=== PATIENT | female | born 1990 | race Caucasian/White ===

== ENCOUNTER → 2018-06-17 16:27 | Outpatient (CLI) | payer OTHER, SELFPAY ==
[2018-06-17 17:08] LABS: Add Manual Diff / Slide Review NO; Basophils Percent Auto 0.7 % (0-2); Eosinophils Percent Auto 0.3 % (2-4); Hematocrit 36.7 % (36-46); Hemoglobin 12.6 g/dL (12.0-16.0); Lymphocytes Percent Auto 20.4 % (25-40); Mean Corpuscular HGB Conc 34.4 % (30-36); Mean Corpuscular Hemoglobin 30.6 PG (26-34); Mean Corpuscular Volume 88.9 fL (80-100); Monocytes Percent Auto 5.5 % (3-14); Neutrophils Absolute Auto 5700 /uL (3000-5900); Neutrophils Percent Auto 73.1 % (50-75); Platelet Count 212 X10^3/uL (150-400); Red Blood Cell Count 4.12 X10^6/uL (4.0-5.2); Red Cell Distribution Width 13.4 % (11.6-14.8); White Blood Cell Count 7.8 X10^3/uL (4.5-11.0)
[2018-06-17 18:03] LABS: Hepatitis B Surface Antigen NEGATIVE s/c (NEGATIVE)
[2018-06-17 18:23] LABS: HIV 1 and 2 Antibody NEGATIVE (NEGATIVE); Hep C Virus Ab w/Reflex Quant NEGATIVE s/c (NEGATIVE)
[2018-06-17 18:33] LABS: Bilirubin Urine UA NEGATIVE (NEGATIVE); Color Urine UA YELLOW; Glucose Urine UA NEGATIVE (Normal); Ketones Urine UA NEGATIVE (NEGATIVE); Leukocyte Esterase Urine UA 3+ (NEGATIVE); Nitrite Urine UA NEGATIVE (Negative); Occult Blood Urine UA TRACE-LYSED (Negative); Protein Urine UA NEGATIVE (Negative); Specific Gravity Urine UA <=1.005 (1.000-1.035); Urobilinogen Urine UA 0.2 E.U./dL (0.2)
[2018-06-17 18:39] LABS: Appearance Urine UA Slightly Cloudy
[2018-06-17 18:48] LABS: Bacteria Urine Moderate (10-30); RBC Urine 0-1/HPF (0-5/HPF); Squamous Epithelial Cell Urine 1-5 /HPF; Urine Comments CX ALREADY ORDERED; WBC Urine 1-5/HPF (0-5/HPF)
[2018-06-19 13:37] LABS: RPR Screen Nonreactive (Nonreactive)
[2018-06-19 14:13] LABS: HSV 2 IGG AB < 0.90 index (< 0.90); HSV1IGG > 58.00 index (< 0.90)
== END ==
PROVIDERS: Visit Provider Family Medicine
DX: Z34.82 Encounter for supervision of other normal pregnancy, second trimester (principal); Z3A.16 16 weeks gestation of pregnancy
CPT/HCPCS: 36415; 80055; 81003; 81015; 86695; 86696; 86703; 86787; 86803; 86850; 86900; 86901; 87077; 87086

== ENCOUNTER → 2018-08-12 15:31 | Outpatient (CLI) | payer OTHER, SELFPAY ==
--- NOTE | 2018-08-12 15:40 | DI.US.S_ITS ---
PROCEDURE: US OB >= 14 WEEKS FETUS INDICATIONS: ANATOMIC SURVEY OUTSIDE/PRIOR DATING DATA: Last menstrual period (LMP): 03/05/18. LMP-based estimated date of delivery (LEONIDAS): 12/10/18. First dating scan (date and location): 08/12/18. Estimated date of delivery (LEONIDAS) from first dating scan: 12/04/18. TECHNIQUE: Real-time scanning was performed of the fetus, with image documentation and biometric measurements. Endovaginal scanning: No COMPARISON: [facility], , OB >= 14 WEEKS FETUS, 06/24/2018, 16:44. FINDINGS: General: A single living intrauterine gestation is present. Presentation: Transverse. Placenta: Placental position is posterior, without previa. Amniotic fluid index: 16.3 cm. heart rate: 139 beats per minute. Maternal cervical canal: 4.1 cm. biometrics: Biparietal diameter: 24 weeks 5 days Head circumference: 24 weeks 2 days Abdominal circumference: 23 weeks 2 days Femur length: 22 weeks 5 days Estimated gestational age from initial scan: not applicable. Composite gestational age from present scan: 23 weeks 5 days Estimated weight and percentile: 574 g, 61st percentile Measurement variability for biometric dating: +/- 7 days from 14 weeks to 15 weeks 6 days gestation, +/- 10 days from 16 weeks to 21 weeks 6 days gestation, +/- 2 weeks from 22 weeks to 27 weeks 6 days gestation, +/- 3 weeks for 28 weeks gestation or later. weight reference: 4500 g or EFW >90/95% is considered macrosomia or large for gestational age. EFW <10% is small for gestational age. EFW 5% or less is considered intra-uterine growth restriction. Anatomic survey: Neuro: Ventricles are non-dilated at 4 mm. Cisterna magna is normal at 6 mm. Cerebellum is normal in size and morphology. Nuchal skin fold: Normal at 3 mm. Face: Nose and lips, facial profile are normal. Spine: No evidence for spina bifida. Heart: 4-chambered heart is present. The ventricular outflow tracts are not well assessed on this exam. Diaphragm: Diaphragm is intact. Stomach: Left-sided stomach is present. Kidneys: No hydronephrosis. Cord: 3-vessel cord. Bladder: Normal in size. Extremities: All 4 extremities identified. IMPRESSION: 1. Single living intrauterine present with composite gestational age of 23 weeks 5 days. 2. Ventricular outflow tracts are not well assessed on this exam; attention on followup exams recommended. Dictated by: Calderon Buitrago [facility] Interpreted: Jhon Sunshine MD on 08/12/2018 at 17:02 Approved by: Jhon Sunshine M.D. on 08/12/2018 at 21:44
== END ==
PROVIDERS: Visit Provider Family Medicine
DX: Z34.82 Encounter for supervision of other normal pregnancy, second trimester (principal); Z3A.23 23 weeks gestation of pregnancy
CPT/HCPCS: 76811

== ENCOUNTER → 2018-09-22 16:34 | Outpatient (CLI) | payer OTHER, SELFPAY ==
[2018-09-22 19:26] LABS: Hematocrit 31.5 % (36-46); Hemoglobin 10.6 g/dL (12.0-16.0)
[2018-09-22 19:41] LABS: GTT (PREG) 1 Hour PP 50gm Dose 89 mg/dL (76-139)
== END ==
PROVIDERS: PCP Family Medicine; Visit Provider Family Medicine
DX: Z34.83 Encounter for supervision of other normal pregnancy, third trimester (principal); Z3A.28 28 weeks gestation of pregnancy
CPT/HCPCS: 36415; 82950; 85014; 85018; 86850

== ENCOUNTER → 2018-11-17 16:52 | Outpatient (CLI) | payer OTHER, SELFPAY ==
[2018-11-18 12:38] LABS: Strep Grp B PCR NEG for Grp B Strep
== END ==
PROVIDERS: PCP Family Medicine; Visit Provider Family Medicine
DX: Z34.83 Encounter for supervision of other normal pregnancy, third trimester (principal); Z3A.36 36 weeks gestation of pregnancy
CPT/HCPCS: 87653

== ENCOUNTER 2018-12-14 15:19 | Outpatient (CLI) | payer OTHER, SELFPAY ==
--- NOTE | 2018-12-14 16:01 | PM.OBTRLD ---
Visit Information Visit Information Date of evaluation: 12/14/18 Reason for Evaluation: Yes non-stress test Comments/Additional reasons for admission: NST for post dates. Strip is reactive category 1. PFSH Social History Smoking Status: Never smoker Social History Smoking Status: Never smoker
== END 2018-12-14 16:10 | disposition home or self-care (01) ==
LOC: LABOR 15:47 → OB 12-17 10:55
PROVIDERS: PCP Family Medicine; Visit Provider Family Medicine
DX: O48.0 Post-term pregnancy (principal); Z3A.40 40 weeks gestation of pregnancy
CPT/HCPCS: 59025; G0378; G0379

== ENCOUNTER 2018-12-16 00:52 | Inpatient (IN) | payer OTHER, SELFPAY ==
[2018-12-16] MEDS: LACTATED RINGERS 1,000 ML 100 ML IV ×2 (01:25→03:55)
[2018-12-16 01:41] LABS: Add Manual Diff / Slide Review NO; Basophils Absolute Auto 0 /uL (0-100); Basophils Percent Auto 0.3 % (0-2); Eosinophils Absolute Auto 0 /uL (0-450); Eosinophils Percent Auto 0.5 % (2-4); Hemoglobin 10.6 g/dL (12.0-16.0); Lymphocytes Absolute Auto 2000 /uL (1100-4500); Mean Corpuscular Hemoglobin 27.4 PG (26-34); Mean Corpuscular Volume 80.4 fL (80-100); Monocytes Absolute Auto 700 /uL (0-900); Monocytes Percent Auto 7.1 % (3-14); Neutrophils Absolute Auto 6400 /uL (1500-7000); Neutrophils Percent Auto 70.1 % (50-75); Platelet Count 235 X10^3/uL (150-400); Red Blood Cell Count 3.86 X10^6/uL (4.0-5.2); White Blood Cell Count 9.2 X10^3/uL (4.5-11.0)
--- NOTE | 2018-12-16 02:41 | P.HP_ITS ---
History of Present Illness Date Patient Seen: 12/16/18 Time Patient Seen: 02:34 Chief complaint: evaluation of labor Narrative: 28-year-old G2 para 1 at 40 and 6 7 weeks consistent with LMP and early ultrasound presents to the labor and delivery floor with rupture of membranes. She says approximately at 12:00 p.m. this evening. Her water broke. Patient has been having intermittent contractions for the last day or 2. Patient states her contractions were not any more severe than usual. She said baby had clear fluid. They presented to the labor and delivery floor for evaluation. Last 24 hours patient states she has been feeling well. No headache blurry vision right upper quadrant pain. She has some mild swelling. And intermittent contractions. Patient has had no fever. She has had good movement. On arrival to Labor and delivery for. Patient was grossly ruptured 6 cm and tamela. Patient's vital signs were stable. heart rate was on the low side of normal on a baseline of about 110 mildly flat. Baby was given a fluid bolus and requested an epidural. Which time strip became reactive. After the epidural vital signs were stable. The baby's cervical exam showed her to be at 9 cm. Patient was having some variable decelerations. But was getting comfortable. care initiated at 15 weeks with routine follow-up throughout. weight gain of approximately 35 lb. problems include history of delivery at 29 weeks and severe headaches intermittently during . labs be negative antibody screen negative initial hemoglobin hematocrit 36.7 and platelet count 212 ED are all nonreactive hepatitis-B surface antigen negative HIV negative rubella immune. HSV 1 positive HSV 2-Pap smear within normal limits varicella immune GBS negative. Patient medical history headache occasional stomach issues. Past surgical history none. Patient History Social History Smoking Status: Never smoker Family & Social History Tobacco & Substance use: Smoking Status Never smoker Meds Home Medications Medication Instructions Recorded Confirmed Type No Known Home Medications 12/16/18 12/16/18 History Allergies Allergy/AdvReac Type Severity Reaction Status Date / Time No Known Drug Allergies Allergy Verified 12/16/18 02:08 Exam Narrative Exam Narrative: . General: Alert no apparent distress. Affect is appropriate. Tamela it is uncomfortable. HEENT: Neck is supple without lymphadenopathy pupils equal round and reactive. Cardio: S1-S2 regular rate and rhythm. Respiratory: Lungs clear to auscultation. Abdomen: Gravid. Extremities: Normal deep tendon reflexes trace edema. [place]: Tamela regularly every 3-5 minutes with 60 minute contractions moderate and strength. heart tones: heart tones category 2. Objective Labs Result Diagrams: 12/16/18 01:25 Labs: Laboratory Results - last 24 hr 12/16/18 01:25 WBC 9.2 RBC 3.86 L Hgb 10.6 L Hct 31.0 L MCV 80.4 MCH 27.4 MCHC 34.0 RDW 14.0 Plt Count 235 Neut % (Auto) 70.1 Lymph % (Auto) 22.0 L [place] % (Auto) 7.1 Eos % (Auto) 0.5 L Baso % (Auto) 0.3 Neut # (Auto) 6400 Lymph # (Auto) 2000 [place] # (Auto) 700 Eos # (Auto) 0 Baso # (Auto) 0 Assessment & Plan Assessment & Plan narrative: 28-year-old G2 para 1 at 40 and 6 7 weeks grossly ruptured tamela. Patient now has an epidural vital signs are stable of the mother and afebrile. GBS status is negative. heart tones are currently category 2. Patient was receiving a fluid bolus with trying position changes and has oxygen on. Patient is not receiving Pitocin. The baby has had persistent low baseline heart rate since admission to the Center. With the heart rate of 105-110 with reactivity. heart tones are category 2. Will continue to observe closely. Her baby descended into the canal. With expectant management.
[2018-12-16] MEDS: OXYTOCIN 10 UNIT/ML VIAL IM (06:45)
--- NOTE | 2018-12-16 06:47 | PM.PROC.1 ---
Procedures Date/Time Date of procedure: 12/16/18 Time of procedure: 06:47 General Procedure description: Vaginal delivery Stage I of labor approximately 5 hours. During stage I of labor vital signs were stable in mother's she was afebrile she was tamela regularly without medication. She presented with spontaneous rupture of membranes. heart tone was category 2 because of persistent borderline bradycardia with heart rates between 110 and 105 with reactivity at times. Mother progressed through stage I of labor fairly rapidly with good descent of the baby's head during this time. She received epidural anesthesia for pain control. She had clear fluid and she was afebrile. Stage II of labor approximately 2 hours and 15 minutes. Good descent 3 stage II. Vacuum was used with no pop offs. Vacuum was applied at +2 position due to mother's discomfort heart tones that were in the 70s as well as maternal intolerant of proceeding with tiredness. Baby's head was expedited delivery with vacuum without difficulty B was delivered in the occiput anterior position. At the delivery of the head. Baby had a noticeable shoulder and body cord. Baby then delivered spontaneously. Cord was then cut and transected in baby was placed in the warmer with the nurse as mother did not want the baby on the abdomen until cleaned up. Baby was vigorous and had spontaneous cry. Stage III. Delivery of intact placenta. Repair of second-degree midline tear without difficulty in the usual fashion. Mom was given IM Pitocin. There was a 3 vessel cord. No cervical lacerations. Uterus was firm. Mom and baby were resting comfortably afterwards Apgars 8 and 8 weight 8 lb 13 oz.
[2018-12-16] MEDS: IBUPROFEN 600 MG TABLET PO ×2 (12:28→20:00)
[2018-12-16] MEDS: DERMOPLAST SPRAY 20% 60 ML 1 SPRAY TOP (20:01)
[2018-12-17] MEDS: IBUPROFEN 600 MG TABLET PO (05:03)
[2018-12-17 07:05] LABS: Hematocrit 24.5 % (36-46); Hemoglobin 8.2 g/dL (12.0-16.0)
--- NOTE | 2018-12-17 07:48 | PM.DS.1 ---
History of Present Illness Chief complaint: LABOR AND DELIVERY Narrative: 28-year-old G2 para 1 at 40 and 6 7 weeks consistent with LMP and early ultrasound presents to the labor and delivery floor with rupture of membranes. She says approximately at 12:00 p.m. this evening. Her water broke. Patient has been having intermittent contractions for the last day or 2. Patient states her contractions were not any more severe than usual. She said baby had clear fluid. They presented to the labor and delivery floor for evaluation. Last 24 hours patient states she has been feeling well. No headache blurry vision right upper quadrant pain. She has some mild swelling. And intermittent contractions. Patient has had no fever. She has had good movement. On arrival to Labor and delivery for. Patient was grossly ruptured 6 cm and tamela. Patient's vital signs were stable. heart rate was on the low side of normal on a baseline of about 110 mildly flat. Baby was given a fluid bolus and requested an epidural. Which time strip became reactive. After the epidural vital signs were stable. The baby's cervical exam showed her to be at 9 cm. Patient was having some variable decelerations. But was getting comfortable. care initiated at 15 weeks with routine follow-up throughout. weight gain of approximately 35 lb. problems include history of delivery at 29 weeks and severe headaches intermittently during . labs be negative antibody screen negative initial hemoglobin hematocrit 36.7 and platelet count 212 ED are all nonreactive hepatitis-B surface antigen negative HIV negative rubella immune. HSV 1 positive HSV 2-Pap smear within normal limits varicella immune GBS negative. Patient medical history headache occasional stomach issues. Past surgical history none. Discharge Providers Date of admission: 12/16/18 00:52 Discharge Date: 12/17/18 Primary care physician: Enrique Wolfe MD Consults: 12/16/18 07:13 Consult to Senior Game Developer Routine Comment: Discharge provider: Enrique Wolfe MD Summary Discharge Diagnosis: Term vaginal delivery without complications anemia Hospital Course: Admitted to the hospital after spontaneous rupture of membranes term vaginal delivery with use of vacuum. Routine care. Time of discharge hemoglobin was 8.2. Time of discharge mom was eating normal urination normal bowel movements bleeding was well controlled. Mild uterine cramps traction she was afebrile. Mom was bottle feeding. Exam Narrative Exam Narrative: General: Alert no apparent distress. Affect is appropriate. [place] it is uncomfortable. HEENT: Neck is supple without lymphadenopathy pupils equal round and reactive. Cardio: S1-S2 regular rate and rhythm. Respiratory: Lungs clear to auscultation. Abdomen: Uterus firm. Extremities: Normal deep tendon reflexes trace edema. Objective Labs Result Diagrams: 12/17/18 06:45 Labs: Laboratory Results - last 24 hr 12/17/18 12/17/18 06:45 06:45 Hgb 8.2 L Hct 24.5 L Maternal Bleed Negative Discharge Plan Discharge Plan Patient Disposition: Home Discharge Med Rec/Prescriptions Prescriptions: New ibuprofen 600 mg Tablet 600 mg PO Q6HR PRN (Reason: Pain, Mild (1-3)) Qty: 30 RF: 0 docusate sodium 250 mg Capsule 250 mg PO DAILY Qty: 30 RF: 0 Prenatabs Rx 29 mg iron- 1 mg Tablet 1 tab PO DAILY Qty: 90 RF: 3 ferrous gluconate 236 mg (27 mg iron) tablet 236 mg PO DAILY Qty: 30 RF: 0 Follow up/Referrals: Enrique Wolfe MD [Primary Care Provider] - Visit Report/Discharge Packet Visit Report Forms: Stroke Signs & Symptoms Discharge Data Primary Care Provider: Enrique Wolfe Attending Provider: Enrique Wolfe Admit Date/Time: 12/16/18 00:52
[2018-12-17 09:03] VITALS: BP 117/78; PULSE 76; RESP 16; TEMP 36.2
[2018-12-17] MEDS: RHO(D) IMMUNE GLOBULIN 1,500 UNIT SYRINGE 1500 UNIT IM (10:41)
[2018-12-17] MEDS: DOCUSATE 250 MG CAPSULE PO (10:42)
[2018-12-17] MEDS: PRENATAL VIT,CALC/IRON/FOLIC 1 TABLET 1 TAB PO (10:42)
== END 2018-12-17 11:10 | disposition home or self-care (01) | DRG 806 ==
PROVIDERS: Admitting Provider Family Medicine; PCP Family Medicine; Visit Provider Family Medicine
DX: O48.0 Post-term pregnancy (principal); D62 Acute posthemorrhagic anemia; Z37.0 Single live birth; O75.81 Maternal exhaustion complicating labor and delivery; O70.1 Second degree perineal laceration during delivery; O69.2XX0 Labor and delivery complicated by other cord entanglement, with compression, not applicable or unspecified; Z3A.40 40 weeks gestation of pregnancy; D64.9 Anemia, unspecified
CPT/HCPCS: 01967; 36415; 59025; 59050; 59400; 85014; 85018; 85025; 85461; 86850; 86870; 86900; 86901; G0379; J2590; J2790

== ENCOUNTER 2019-05-02 12:24 | Emergency (ER) | payer OTHER, SELFPAY ==
[2019-05-02 12:25] VITALS: BP 119/61; PULSE 97; RESP 16; TEMP 36.9; O2SAT 99
--- NOTE | 2019-05-02 12:43 | ED_ITS ---
HPI - Abdominal Pain <MINERVA South - Last Filed: 05/02/19 22:31> General Chief Complaint: Urogenital-Female Stated Complaint: urgency/frequency/low back pain x4 days Time Seen by Provider: 05/02/19 12:29 Source: patient Mode of arrival: ambulatory Limitations: no limitations History of Present Illness HPI narrative: 29-year-old healthy female that is 3 months , presents emergency department today complaining of lower mid abdominal pain, blood in the urine, dysuria, frequency, and right flank pain starting 4 days ago. She does report occasional nausea. She states she occasionally gets dysuria but often results in a day or so, this time and is progressively got worse. She denies any fevers, chills, chest pain, shortness of breath, vomiting, changes in bowel pattern, vaginal discharge, increased weakness, dizziness, or syncope. She reports a vaginal without complication, she also reports the has been healthy. Patient states that she is not breast-feeding at this time. Related Data Previous Rx's Medication Instructions Recorded vit,[id number] 1 tab PO DAILY #90 tab 12/17/18 [Prenatabs Rx] cephalexin 500 mg PO BID 14 Days #28 cap 05/02/19 ondansetron 4 mg PO Q8H #7 tab 05/02/19 phenazopyridine [Pyridium] 100 mg PO TID PRN 2 Days #6 tab 05/02/19 Allergies Allergy/AdvReac Type Severity Reaction Status Date / Time No Known Drug Allergies Allergy Verified 05/02/19 12:43 Review of Systems <MINERVA [place] - Last Filed: 05/02/19 22:31> Review of Systems Narrative: REVIEW OF SYSTEMS: GENERAL: Denies fever, chills, malaise, or wt. loss. HENT: No head trauma, sore throat, or dysphagia. EYES: No loss of vision, double vision, eye pain, or irritation. CARDIOVASCULAR: No chest pain, palpitations, or orthopnea. RESPIRATORY: No shortness of breath or cough. GASTROINTESTINAL: Denies abdominal pain GENITOURINARY: Complains of right flank pain, dysuria, and frequency, see HPI. No vaginal discharge or dyspareunia. Denies concerns for STIs MUSCULOSKELETAL: No pain, weakness, or trauma. INTEGUMENTARY: No rash, lesions, or pruritus. NEURO: No numbness, tingling, memory loss, confusion, or headaches. PSYCH: No behavior or mood changes. PFSH <MINERVA South - Last Filed: 05/02/19 22:31> Medical History No significant medical problems (Acute) Social History Smoking Status: Never smoker Social History Smoking Status: Never smoker Exam <MINERVA [place] - Last Filed: 05/02/19 22:31> Initial Vital Signs Initial Vital Signs: Vital Signs Temperature 98.4 F 05/02/19 12:25 Pulse Rate 97 H 05/02/19 12:25 Respiratory Rate 16 05/02/19 12:25 Blood Pressure 119/61 05/02/19 12:25 Pulse Oximetry 99 05/02/19 12:25 PHYSICAL EXAMINATION: GENERAL: Well groomed, alert, and cooperative. Answers questions promptly and appropriately. Vital signs noted. HENT: Normocephalic, atraumatic. Hearing intact. Oral mucosa is pink and moist. EYES: Conjunctiva pink, sclera white, no periorbital swelling. CARDIOVASCULAR: S1 and S2 sounds normal. Regular rate and rhythm, no murmurs, clicks, or bruits. No pedal edema. RESPIRATORY: Normal respiratory rate, trachea midline, airway patent. No stridor, nasal flaring or accessory muscle use. Lungs are clear in all kraft without wheeze, rhonchi, or crackles. GASTROINTESTINAL: Bowel sounds normoactive. Abdomen is soft and non-tender. No organomegaly, no palpable masses. GENITALURINARY: Right flank tenderness. MUSCULOSKELETAL: Normal gait and coordination. Equal tone and mass bilaterally. EXTREMITIES: CMS intact, no pedal edema. SKIN: Warm, dry, soft, appropriate color for ethnicity. No lesions, rashes, or wounds. NEURO: Alert and Oriented X 3. Good coordination. No ataxia, or sensory deficits, or cognitive issues. PSYCH: Appropriate affect and mood. <Samantha Willard DO - Last Filed: 05/03/19 07:34> Initial Vital Signs Initial Vital Signs: Vital Signs Temperature 98.4 F 05/02/19 12:25 Pulse Rate 97 H 05/02/19 12:25 Respiratory Rate 16 05/02/19 12:25 Blood Pressure 119/61 05/02/19 12:25 Pulse Oximetry 99 05/02/19 12:25 Course <MINERVA [place] - Last Filed: 05/02/19 22:31> Orders Ordered: Discontinued Medications Phenazopyridine HCl (Pyridium) 200 mg PO NOW ONE Stop: 05/02/19 12:56 Last Admin: 05/02/19 13:00 Dose: 200 mg Documented by: JOSAFAT Vital Signs Vital signs: Vital Signs - 8 hr 05/02/19 12:25 Temperature 98.4 F Pulse Rate 97 H Respiratory Rate 16 Blood Pressure 119/61 Pulse Oximetry 99 <Samantha Willard DO - Last Filed: 05/03/19 07:34> Orders Ordered: Discontinued Medications Phenazopyridine HCl (Pyridium) 200 mg PO NOW ONE Stop: 05/02/19 12:56 Last Admin: 05/02/19 13:00 Dose: 200 mg Documented by: JOSAFAT Vital Signs Vital signs: Vital Signs - 8 hr 05/02/19 12:25 Temperature 98.4 F Pulse Rate 97 H Respiratory Rate 16 Blood Pressure 119/61 Pulse Oximetry 99 MDM - Abdominal Pain <MINERVA [place] - Last Filed: 05/02/19 22:31> Medical Records Attestation: I reviewed the patient's medical records. Lab Data Attestation: I reviewed the patient's lab results. Labs: Lab Results 05/02/19 Range/Units 12:39 Urine RBC 30-100/hpf H (0-5/HPF) Urine WBC 30-100/hpf H (0-5/HPF) Urine Bacteria Moderate (10-30) H (None) Ur Culture Indicated? Specimen cultured Point of care testing: Point of Care Testing Test Results Negative Urine Dip Bedside Urine Glucose Negative Bedside Urine Bilirubin - Negative Bedside Urine Ketone - Negative Urine Specific [place] 1.020 Bedside Urine Occult Blood +++ Bedside Urine pH 7.0 Bedside Urine Protein ++ 100 Bedside Urine Urobilinogen +/- 1mg Bedside Urine Nitrite - Negative Bedside Urine Leukocytes +++ 500 Esterase MDM Narrative Medical decision making narrative: Urinalysis clearly indicates infection, due to patient's complaint of right flank pain I suspect she has pyelonephritis as well. She is a candidate for outpatient antibiotic treatment has she has not vomited, she is afebrile, she is able to fill her prescriptions, and she is hemodynamically stable without distress. Strict return precautions given and follow-up instructions discussed. <Samantha Montse, - Last Filed: 05/03/19 07:34> Lab Data Labs: Lab Results 05/02/19 Range/Units 12:39 Urine RBC 30-100/hpf H (0-5/HPF) Urine WBC 30-100/hpf H (0-5/HPF) Urine Bacteria Moderate (10-30) H (None) Ur Culture Indicated? Specimen cultured Point of care testing: Point of Care Testing Test Results Negative Urine Dip Bedside Urine Glucose Negative Bedside Urine Bilirubin - Negative Bedside Urine Ketone - Negative Urine Specific [place] 1.020 Bedside Urine Occult Blood +++ Bedside Urine pH 7.0 Bedside Urine Protein ++ 100 Bedside Urine Urobilinogen +/- 1mg Bedside Urine Nitrite - Negative Bedside Urine Leukocytes +++ 500 Esterase Discharge Plan Departure Patient Disposition: Home Clinical Impression: Pyelonephritis Urinary tract infection Qualifiers: Urinary tract infection type: acute cystitis Hematuria presence: with hematuria Qualified Code(s): N30.01 - Acute cystitis with hematuria Discharge Date/Time: 05/02/19 13:09 Instructions: DI for Kidney Infection, DI for Urinary Tract Infection (UTI) Activity Restrictions/Additional Instructions: Thank you for entrusting me with your care today. As discussed, it appears to have a urinary tract infection and a kidney infection. I prescribed you antibiotics, please take these as directed. I have also prescribed a medication help with the pain, this can turn yellow bright orange, do not be alarmed this is normal with this medication. Additionally, I have prescribed you a medication for nausea, please take this if needed. Follow up with your primary care provider in 1 week for re-evaluation. Return to the emergency department if he develops high fevers, uncontrollable vomiting, dizziness, syncope, chest pain, shortness of breath, or increasing weakness. Prescriptions: New cephalexin 500 mg capsule 500 mg PO BID 14 Days Qty: 28 RF: 0 ondansetron 4 mg tablet,disintegrating 4 mg PO Q8H Qty: 7 RF: 0 phenazopyridine [Pyridium] 100 mg tablet 100 mg PO TID PRN (Reason: pain) 2 Days Qty: 6 RF: 0 No Action Prenatabs Rx 29 mg iron- 1 mg Tablet 1 tab PO DAILY Qty: 90 RF: 3 Referrals: Enrique Wolfe MD [Primary Care Provider] -
[2019-05-02 13:00] LABS: Bacteria Urine Moderate (10-30); Culture Indicated Urine Specimen Cultured; RBC Urine 30-100/HPF (0-5/HPF); WBC Urine 30-100/HPF (0-5/HPF)
[2019-05-02] MEDS: PHENAZOPYRIDINE 100 MG TABLET 200 MG PO (13:00)
== END 2019-05-02 13:09 | disposition home or self-care (01) ==
PROVIDERS: Emergency Provider Nurse Practitioner; PCP Family Medicine
DX: N12 Tubulo-interstitial nephritis, not specified as acute or chronic (principal); N30.01 Acute cystitis with hematuria
CPT/HCPCS: 81003; 81015; 81025; 87077; 87086; 87186; 99282; 99283

== ENCOUNTER 2019-07-12 14:26 | Emergency (ER) | payer OTHER, SELFPAY ==
[2019-07-12 14:29] VITALS: BP 106/62; PULSE 77; RESP 14; TEMP 36.4; O2SAT 99
--- NOTE | 2019-07-12 15:24 | DI.RAD.S_ITS ---
PROCEDURE: XR LUMBAR SPINE 2-3V INDICATIONS: back pain TECHNIQUE: 3 views of the lumbar spine were acquired. COMPARISON: None. FINDINGS: Bones: There are 5 lumbar-type vertebral bodies. The lowest intervertebral disk space is designated as L5-S1. The vertebral body heights are well-maintained without evidence to suggest an acute compression fracture. The bone mineralization is within normal limits. There appear to be early facet degenerative changes of the lower lumbar spine. Intervertebral disc heights are relatively well-maintained throughout the lumbar region. There may be mild degenerative changes of the sacroiliac joints. Soft tissues: The soft tissues of the imaged abdomen and pelvis are within normal limits. IMPRESSION: Mild degenerative changes of the lower lumbar spine. No fractures. Dictated by: Vasquez Boothe M.D. on 07/12/2019 at 15:21 Approved by: Vasquez Boothe M.D. on 07/12/2019 at 15:25
[2019-07-12] MEDS: KETOROLAC 60 MG/2 ML VIAL IM (15:41)
[2019-07-12] MEDS: CYCLOBENZAPRINE 10 MG TABLET PO (15:41)
--- NOTE | 2019-07-12 16:44 | ED.BACK ---
HPI - Back Pain/Injury <BRISSA Perez - Last Filed: 07/12/19 17:04> General Chief Complaint: Back Pain/Injury Stated Complaint: Sharp pain in right lower back since Friday Time Seen by Provider: 07/12/19 14:44 Source: patient and family Mode of arrival: Ambulatory History of Present Illness HPI Narrative: The patient is a 29-year-old female nonsmoker presents with her for chief complaint of right-sided lower back pain. She is 7 months , does not breast feed. She states it has started several days ago, radiates down right leg. She denies any incontinence of bowel, incontinence of bladder saddle anesthesia. She denies any fevers, specific mechanical incidents to send off back pain, falls etc. She denies any personal history of cancer. She has not taken anything to feel better. She states that sometimes she has right-sided lower back pain, but usually goes away, however did not go away this time. She denies any dysuria urgency or frequency Related Data Previous Rx's Medication Instructions Recorded cyclobenzaprine 10 mg PO BEDTIME PRN #14 tab 07/12/19 ketorolac 10 mg PO TID PRN #14 tab 07/12/19 Allergies Allergy/AdvReac Type Severity Reaction Status Date / Time No Known Drug Allergies Allergy Verified 05/02/19 12:43 Review of Systems <BRISSA Perez - Last Filed: 07/12/19 17:04> Review of Systems Narrative: GENERAL: Denies chills, fatigue, malaise, fever, sweats. HEENT: Denies sinus pain, ear pain, sore throat, difficulty swallowing, dizziness. RESPIRATORY: Denies dyspnea, cough, wheezing, hemoptysis, sputum. CARDIOVASCULAR: Denies chest pain, palpitations, orthopnea, edema, GASTROINTESTINAL: Denies nausea, vomiting, abdominal pain, diarrhea, constipation, melena. : Denies dysuria, frequency, incontinence, hematuria, urinary retention. MUSCULOSKELETAL: See HPI SKIN: Denies rash, skin lesions, or other NEUROLOGIC: Denies weakness, headache, numbness, change in speech, confusion, seizures, incoordination. PSYCHIATRIC: No concerning psychosocial issues. 12 point review of systems is negative except for those stated above Patient History <BRISSA Perez - Last Filed: 07/12/19 17:04> Social History Smoking Status: Never smoker Substance Use Type: does not use Exam <RY Perez - Last Filed: 07/12/19 17:04> Narrative Exam Narrative: GENERAL: This is a well-nourished, well-developed patient, in no acute distress HEAD: Atraumatic. Normocephalic. No temporal or scalp tenderness. EYES: Pupils equal round and reactive. Extraocular motions intact. No scleral icterus. No injection or drainage. ENT: Nose without bleeding, purulent drainage or septal hematoma. Throat without erythema, tonsillar hypertrophy or exudate. Uvula midline. Airway patent. NECK: Trachea midline. No JVD or lymphadenopathy. Supple, nontender, no meningeal signs. CARDIOVASCULAR: Regular rate and rhythm RESPIRATORY: No cough. No increased respiratory effort. No accessory muscle use. EXTREMITIES: No clubbing, cyanosis, or edema. No joint tenderness, effusion, or edema noted. BACK: Diffuse pain to palpation L-spine and right-sided L-spine. No pain to palpation of C or T-spine. NEURO: AOx3. Strength is equal upper and lower extremities bilaterally. Using all extremities equally. SKIN: No rash or erythema visible skin Initial Vital Signs Initial Vital Signs: Vital Signs Temperature 97.6 F 07/12/19 14:29 Pulse Rate 77 07/12/19 14:29 Respiratory Rate 14 07/12/19 14:29 Blood Pressure 106/62 07/12/19 14:29 Pulse Oximetry 99 07/12/19 14:29 <Aimee Adan MD - Last Filed: 07/12/19 19:32> Initial Vital Signs Initial Vital Signs: Vital Signs Temperature 97.6 F 07/12/19 14:29 Pulse Rate 77 07/12/19 14:29 Respiratory Rate 14 07/12/19 14:29 Blood Pressure 106/62 07/12/19 14:29 Pulse Oximetry 99 07/12/19 14:29 Course <RY Perez - Last Filed: 07/12/19 17:04> Orders Ordered: ED Orders 07/12/19 15:24 XR lumbar spine 2-3V Stat Discontinued Medications Cyclobenzaprine HCl (Flexeril) 10 mg PO NOW ONE Stop: 07/12/19 15:25 Last Admin: 07/12/19 15:41 Dose: 10 mg Documented by: JUDSON Ketorolac Tromethamine (Toradol) 60 mg IM NOW ONE Stop: 07/12/19 15:25 Last Admin: 07/12/19 15:41 Dose: 60 mg Documented by: JUDSON Vital Signs Vital signs: Vital Signs - 8 hr 07/12/19 14:29 07/12/19 17:13 Temperature 97.6 F Pulse Rate 77 78 Respiratory Rate 14 16 Blood Pressure 106/62 Blood Pressure [Left Arm] 108/64 Pulse Oximetry 99 99 <Aimee Adan MD - Last Filed: 07/12/19 19:32> Orders Ordered: ED Orders 07/12/19 15:24 XR lumbar spine 2-3V Stat Discontinued Medications Cyclobenzaprine HCl (Flexeril) 10 mg PO NOW ONE Stop: 07/12/19 15:25 Last Admin: 07/12/19 15:41 Dose: 10 mg Documented by: JUDSON Ketorolac Tromethamine (Toradol) 60 mg IM NOW ONE Stop: 07/12/19 15:25 Last Admin: 07/12/19 15:41 Dose: 60 mg Documented by: JUDSON Vital Signs Vital signs: Vital Signs - 8 hr 07/12/19 14:29 07/12/19 17:13 Temperature 97.6 F Pulse Rate 77 78 Respiratory Rate 14 16 Blood Pressure 106/62 Blood Pressure [Left Arm] 108/64 Pulse Oximetry 99 99 MDM - Back Pain/Injury <RY Perez - Last Filed: 07/12/19 17:04> Lab Data Labs: Point of Care Testing Test Results Negative Urine Dip Bedside Urine Glucose Negative Bedside Urine Bilirubin - Negative Bedside Urine Ketone - Negative Urine Specific [place] 1.015 Bedside Urine Occult Blood - Negative Bedside Urine pH 6.5 Bedside Urine Protein - Negative Bedside Urine Urobilinogen - Negative Bedside Urine Nitrite - Negative Bedside Urine Leukocytes - Negative Esterase Imaging Data L-spine x-ray: Radiologist's impression: [address] [id number] XRay Report Signed Patient: Zamzam Reece OMR#: [id number] : 1990Acct:[id number] Age/Sex: 29 / FDate of Service: 07/12/19 Loc: ED Accession Number: [id number] Procedure: XR lumbar spine 2-3V Ordering Provider: Milla Ames PROCEDURE: XR LUMBAR SPINE 2-3V INDICATIONS: back pain TECHNIQUE: 3 views of the lumbar spine were acquired. COMPARISON: None. FINDINGS: Bones: There are 5 lumbar-type vertebral bodies. The lowest intervertebral disk space is designated as L5-S1. The vertebral body heights are well-maintained without evidence to suggest an acute compression fracture. The bone mineralization is within normal limits. There appear to be early facet degenerative changes of the lower lumbar spine. Intervertebral disc heights are relatively well-maintained throughout the lumbar region. There may be mild degenerative changes of the sacroiliac joints. Soft tissues: The soft tissues of the imaged abdomen and pelvis are within normal limits. IMPRESSION: Mild degenerative changes of the lower lumbar spine. No fractures. Dictated by: Vasquez Boothe M.D. on 07/12/2019 at 15:21 Approved by: Vasquez Boothe M.D. on 07/12/2019 at 15:25 MDM Narrative Medical decision making narrative: The patient is a 29-year-old female who presents with a chief complaint of right-sided lower back pain times 2-3 days. She has a normal urinalysis. She has no neurological signs of incontinence bowel, incontinence of bladder numbness in her groin. I discussed these are strict return precautions. The patient is mostly [place]ian-speaking, but of note declined a molder machine tender stated she would rather use her . X-ray shows early degenerative changes. She responded very well in the emergency department to Toradol and Flexeril. I gave her prescriptions of these. I discussed at length the importance of following up with primary care provider, discussed throughout to the emergency department for any acute concerns including incontinence bowel, incontinence bowel or saddle anesthesia. Patient has negative. Normal urinalysis. Patient has was a understanding of follow-up care as well as return precautions have no questions or concerns upon discharge <Aimee Adan MD - Last Filed: 07/12/19 19:32> Lab Data Labs: Point of Care Testing Test Results Negative Urine Dip Bedside Urine Glucose Negative Bedside Urine Bilirubin - Negative Bedside Urine Ketone - Negative Urine Specific [place] 1.015 Bedside Urine Occult Blood - Negative Bedside Urine pH 6.5 Bedside Urine Protein - Negative Bedside Urine Urobilinogen - Negative Bedside Urine Nitrite - Negative Bedside Urine Leukocytes - Negative Esterase Discharge Plan Departure Patient Disposition: Home Clinical Impression: Lumbar back pain Strain of lumbar region Qualifiers: Encounter type: initial encounter Qualified Code(s): S39.012A - Strain of muscle, fascia and tendon of lower back, initial encounter Discharge Date/Time: 07/12/19 17:15 Instructions: DI for Low Back Pain, DI for Muscle Strain, DI for Back Spasm, DI for Back Strain or Sprain Activity Restrictions/Additional Instructions: I have sent two prescriptions to [facility] in [place] Please follow up with primary care provider. Please come back to the emergency department for any acute concerns such as incontinence of bowel, incontinence of bladder numbness in her groin I have given you a prescription of Toradol. This is an NSAID. Do not combine it with other NSAIDs such as Aleve or ibuprofen. I suggest taking it with some food, as it can irritate your stomach. Prescriptions: New ketorolac 10 mg tablet 10 mg PO TID PRN (Reason: pain) Qty: 14 RF: 0 cyclobenzaprine 10 mg tablet 10 mg PO BEDTIME PRN (Reason: muscle spasm) Qty: 14 RF: 0 Referrals: [facility] [Outside] Enrique Wolfe MD [Primary Care Provider] -
[2019-07-12 17:13] VITALS: BP 108/64; PULSE 78; RESP 16; O2SAT 99
== END 2019-07-12 17:15 | disposition home or self-care (01) ==
PROVIDERS: Emergency Provider Nurse Practitioner Family; PCP Family Medicine
DX: S39.012A Strain of muscle, fascia and tendon of lower back, initial encounter (principal)
CPT/HCPCS: 72100; 81003; 81025; 96372; 99282; 99283; J1885

== ENCOUNTER 2020-03-22 01:02 | Emergency (ER) | payer OTHER, SELFPAY ==
[2020-03-22 01:09] VITALS: BP 102/72; PULSE 97; RESP 16; TEMP 36.2; O2SAT 100; BMI 25.0
--- NOTE | 2020-03-22 01:15 | ED_ITS ---
HPI - Female Genitourinary General Chief complaint: Urogenital-Female Stated complaint: stomach hurts peeing blood in urine Time Seen by Provider: 03/22/20 01:15 Mode of arrival: Ambulatory History of Present Illness HPI Narrative: Otherwise healthy 29-year-old woman presents with 6 hours of increasing abdominal pain cramping now developing hematuria. She describes no flank pain no fevers, no vomiting, no diarrhea. No change to bowel habits or complaints of constipation. No vaginal discharge, no new sexual partners. Related Data Previous Rx's Medication Instructions Recorded sulfamethoxazole-trimethoprim 1 tab PO BID #10 tab 03/22/20 Allergies Allergy/AdvReac Type Severity Reaction Status Date / Time No Known Drug Allergies Allergy Verified 10/19/19 15:54 Review of Systems Review of Systems Narrative: Pertinent positive and negative findings as per HPI Remainder of review of systems is otherwise unremarkable for Constitutional: Fevers, chills, weakness ENT: No sore throat, neck pain, ear pain CV: Chest pain, palpitations, dyspnea on exertion Respiratory: Cough, wheeze, dyspnea GI: Nausea, vomiting, diarrhea, Patient History Medical History No significant medical problems (Acute) Substance Use Type: does not use Exam Narrative Exam Narrative: General: Alert appropriate in no acute distress Respiratory: Able to speak in full sentences, no obvious respiratory distress Skin: No obvious rashes, warm and dry Abdomen: Minimal suprapubic tenderness, good bowel tones, no flank pain Neurologic: Grossly intact no obvious asymmetries or abnormalities Psych, appropriate insight and affect, cooperative Initial Vital Signs Initial Vital Signs: Vital Signs Temperature 97.2 F L 03/22/20 01:09 Pulse Rate 97 H 03/22/20 01:09 Respiratory Rate 16 03/22/20 01:09 Blood Pressure 102/72 03/22/20 01:09 Pulse Oximetry 100 03/22/20 01:09 Course Orders Ordered: ED Orders 03/22/20 01:33 Test Urine Stat Urinalysis and Microscopic Stat Urine Culture Stat Discontinued Medications Phenazopyridine HCl (Pyridium 100mg Prepack) 1 bottle MISC SEEINSTR ONE Stop: 03/22/20 02:29 Vital Signs Vital signs: Vital Signs - 8 hr 03/22/20 01:09 Temperature 97.2 F L Pulse Rate 97 H Respiratory Rate 16 Blood Pressure 102/72 Pulse Oximetry 100 MDM - Female Genitourinary Medical Records Attestation: I reviewed the patient's medical records. Lab Data Labs: Lab Results 03/22/20 03/22/20 Range/Units 01:33 01:33 Urine Color Red Urine Appearance Slightly cloudy Urine pH 5.5 (4.5-8.0) Ur Specific [place] 1.010 (1.000-1.035) Urine Protein 2+ H (Negative) Urine Glucose (UA) Negative (Negative) g/dL Urine Ketones Negative (NEGATIVE) Urine Occult Blood 3+ H (Negative) Urine Nitrate Negative (Negative) Urine Bilirubin Negative (NEGATIVE) Urine Urobilinogen 0.2 (0.2) E.U./dL Ur Leukocyte Esterase 2+ H (NEGATIVE) Urine RBC 30-100/hpf H (0-5/HPF) Urine WBC 10-30/hpf H (0-5/HPF) Ur Squamous Epith Cells 0-1 /hpf (0-5/HPF) Urine Bacteria Moderate (10-30) H (None) Ur Culture Indicated? Specimen cultured Urine Test Negative (Negative) [facility] Narrative Medical decision making narrative: Exam and urinalysis as well as sister all consistent with acute uncomplicated UTI. She had a similar infection that was a pansensitive E coli almost a year ago. Will start her on . Patient is safe for home discharge Discharge Plan Departure Patient Disposition: Home Clinical Impression: Cystitis Instructions: DI for Urinary Tract Infection (UTI) Activity Restrictions/Additional Instructions: Thank you for coming in today Your symptoms and your urinalysis suggest that you have an acute bladder infection that has not yet become a kidney infection. Based on the bladder infection you had a year ago, I am going to choose an antibiotic called trimethoprim/sulfamethoxazole. This is a sulfa medication and you will need to take it morning and night for a total of 5 days. A prescription has been electronically transmitted to [facility] for you to pick up attendant later today. For the pain with the spasm in your bladder, please use pyridium. I have given you this medication from the emergency department If you develop increasing pain, fevers or have trouble urinating at all please feel free to return to the emergency department I hope you heal quickly Prescriptions: New sulfamethoxazole-trimethoprim 800-160 mg tablet 1 tab PO BID Qty: 10 RF: 0 Referrals: Enrique Wolfe MD [Primary Care Provider] -
[2020-03-22 01:39] LABS: Bilirubin Urine UA NEGATIVE (NEGATIVE); Glucose Urine UA NEGATIVE (Negative); Ketones Urine UA NEGATIVE (NEGATIVE); Leukocyte Esterase Urine UA 2+ (NEGATIVE); Nitrite Urine UA NEGATIVE (Negative); Occult Blood Urine UA 3+ (Negative); Protein Urine UA 2+ (Negative); Urobilinogen Urine UA 0.2 E.U./dL (0.2)
[2020-03-22 01:40] LABS: Appearance Urine UA Slightly Cloudy; Color Urine UA Red; pH Urine UA 5.5 (4.5-8.0)
[2020-03-22 01:41] LABS: Pregnancy Test Urine Negative (Negative)
[2020-03-22 01:48] LABS: RBC Urine 30-100/HPF (0-5/HPF); WBC Urine 10-30/HPF (0-5/HPF)
[2020-03-22 01:49] LABS: Bacteria Urine Moderate (10-30); Culture Indicated Urine Specimen Cultured; Squamous Epithelial Cell Urine 0-1 /HPF (0-5/HPF)
[2020-03-22] MEDS: PHENAZOPYRIDINE 100 MG PREPACK 1 BOTTLE MISC (02:45)
[2020-03-22] MEDS: TRIMETH/SULFA 160/800 (DS) TABLET 1 TAB PO (02:45)
[2020-03-22 02:48] VITALS: BP 110/70; PULSE 74; RESP 14; O2SAT 100
== END 2020-03-22 02:48 | disposition home or self-care (01) ==
PROVIDERS: Emergency Provider Emergency Medicine; PCP Family Medicine
DX: N30.91 Cystitis, unspecified with hematuria (principal)
CPT/HCPCS: 81001; 81025; 87077; 87086; 87186; 99283

== ENCOUNTER 2023-09-30 20:08 | Emergency (ER) | payer OTHER, SELFPAY ==
[2023-09-30 20:15] VITALS: BP 124/61; PULSE 114; RESP 22; TEMP 38.7; O2SAT 98; BMI 23.9
[2023-09-30] MEDS: ACETAMINOPHEN 325 MG TABLET 975 MG PO (20:21)
[2023-09-30] MEDS: IBUPROFEN 400 MG TABLET 800 MG PO (20:49)
[2023-09-30 21:00] VITALS: TEMP 38.2
[2023-09-30 21:05] VITALS: TEMP 38.2
[2023-09-30 21:27] LABS: Influenza A - CEPHEID Flu A NEGATIVE (NEGATIVE); Influenza B - CEPHEID Flu B POSITIVE (NEGATIVE); Respiratory Syncytial Virus Negative (Negative)
[2023-09-30 21:29] VITALS: BP 105/76; PULSE 95; RESP 16; TEMP 38.2; O2SAT 97
[2023-09-30 21:44] LABS: COVID-19 CEPHEID 4-PLEX PCR Negative (Negative)
--- NOTE | 2023-09-30 21:57 | ED.URI ---
HPI - URI/Sore Throat General Chief Complaint: Upper Respiratory Symptoms Stated Complaint: fever x 4 days Time Seen by Provider: 09/30/23 21:56 Source: patient Mode of arrival: Ambulatory History of Present Illness HPI Narrative: Patient is a 33-year-old female without significant past medical history presenting today with 3 days of fever and body aches. She feels like she has pains and aches in her arms and legs. No significant weakness. She was currently febrile and tachycardic here in the ED. she has since been given Tylenol in his feeling a little bit better. She has a mild cough but no significant shortness of breath. Related Data Previous Rx's Medication Instructions Recorded sulfamethoxazole 800 1 tab PO BID #10 tabs 03/22/20 mg-trimethoprim 160 mg tablet Allergies Allergy/AdvReac Type Severity Reaction Status Date / Time No Known Drug Allergies Allergy Verified 10/19/19 15:54 Patient History Medical History (Updated 09/30/23 @ 22:09 by Samantha Willard DO) No significant medical problems Social History marital status: household members: spouse and children (2 BOYS ) Smoking Status: Never smoker alcohol intake: never substance use type: does not use Smoking Status: Never smoker Substance Use Type: does not use Exam Initial Vital Signs Initial Vital Signs: Vital Signs Temperature 101.7 F H 09/30/23 20:15 Pulse Rate 114 H 09/30/23 20:15 Respiratory Rate 22 09/30/23 20:15 Blood Pressure 124/61 09/30/23 20:15 Pulse Oximetry 98 09/30/23 20:15 Oxygen Delivery Method Room Air 09/30/23 20:15 GENERAL: 33-year-old female appears to not feel well but overall nontoxic HEENT: Head atraumatic,EOMI, pupils reactive, face symmetric, moist mucous membranes CARDIOVASCULAR: Regular rate and rhythm without murmurs, rubs or gallops. RESPIRATORY: Breath sounds equal bilaterally, no wheezes rales or rhonchi. ABDOMEN: Soft, nontender. Normoactive bowel sounds all 4 quadrants. No guarding or rebound. EXTREMITIES: Normal range of motion, no clubbing or edema. Neurovascularly intact NEUROLOGICAL: Alert and oriented x4.Normal gait and speech. Cranial nerves II through XII grossly intact. SKIN: Warm, dry, no laceration, no petechiae, no rashes or lesions. Course Orders Ordered: ED Orders 09/30/23 20:20 Covid-19 + FLU A/B + RSV - PCR Stat Discontinued Medications Acetaminophen (Acetaminophen 325 Mg Tablet) 975 mg PO NOW ONE Stop: 09/30/23 20:19 Last Admin: 09/30/23 20:21 Dose: 975 mg Documented By: MARILUZ Ibuprofen (Ibuprofen 400 Mg Tablet) 800 mg PO NOW ONE Stop: 09/30/23 20:19 Last Admin: 09/30/23 20:49 Dose: 800 mg Documented By: YANNICK Vital Signs Vital signs: Vital Signs - 8 hr 09/30/23 20:15 09/30/23 21:00 09/30/23 21:05 Temperature 101.7 F H 100.7 F H 100.7 F H Pulse Rate 114 H Respiratory Rate 22 Blood Pressure 124/61 Pulse Oximetry 98 Oxygen Delivery Method Room Air 09/30/23 21:29 Temperature 100.7 F H Pulse Rate 95 H Respiratory Rate 16 Blood Pressure 105/76 Pulse Oximetry 97 Oxygen Delivery Method Room Air MDM - URI/Sore Throat Lab Data Labs: Lab Results 09/30/23 Range/Units 20:20 SARS-CoV-2 (PCR) Negative (Negative) Influenza A (RT-PCR) Flu a negative (NEGATIVE) Influenza B (RT-PCR) Flu b positive H (NEGATIVE) RSV (PCR) Negative (Negative) MDM Narrative Medical decision making narrative: Patient presents today with body aches fever chills. She is febrile and mildly tachycardic but tachycardia improved with Tylenol fever also improves. Viral panel is positive for influenza B. We discussed supportive measures. Breath sounds are clear no significant respiratory distress. Discharge Plan Departure Patient Disposition: Home Clinical Impression: Influenza B Instructions: DI for Influenza -- Adult Activity Restrictions/Additional Instructions: *You have been diagnosed with influenza B *What to do: Increase fluids as tolerated, recommend Gatorade or Pedialyte treat fever with Tylenol Motrin *Continue to take medications as directed Tylenol 1000 mg every 6 hours if needed for fever or pain Motrin 600 mg every 6 hours if needed for fever or pain *Follow up with your primary care provider in 2-3 days or call [phone] *Return to ER if you should have inability to keep fluids down increased shortness of breath or any new, worsening or concerning symptoms Prescriptions: No Action sulfamethoxazole-trimethoprim 800-160 mg tablet 1 tab PO BID Qty: 10 0RF Referrals: Enrique Wolfe MD [Primary Care Provider] - Stand Alone Forms: Patient Portal/API
== END 2023-09-30 22:21 | disposition home or self-care (01) ==
PROVIDERS: Emergency Provider Emergency Medicine; PCP Family Medicine
DX: J10.1 Influenza due to other identified influenza virus with other respiratory manifestations (principal)
CPT/HCPCS: 0241U; 99283